=== PATIENT | male | born 1955 | race African-American/Black ===

== ENCOUNTER → 2016-12-13 | Outpatient (CLI) | payer OTHER ==
[~2016-12-13] MED LIST: ALDACTONE25 M1 PO; AMLODIPINE BESY1 TAB PO; BUSPIRONE5 MG PO; CARVEDILOL6.25 MG PO; CLOPIDOGREL75 MG PO; Cyclobenzaprine10 MG MR; FAMOTIDINE20 MG PO; HYDROCODONE BIT1 T11 PO; KEFLEX500 MG PO; LANOXIN0.125 MG PO; LANTUS100 U/ML SC; LISINOPRIL5 MG PO; METFORMIN500 MG PO; METOCLOPRAMIDE10 M1 PO; NOVOLOG100 U/ML SC; OMEPRAZOLE DR20 M1 PO; SIMVASTATIN80 MG PO; SULINDAC200 MG PO; VICODIN 500 MG-1 TAB PO
== END | disposition home or self-care (01) ==
LOC: US 11-20 10:00
DX: R10.12 Left upper quadrant pain (principal); E11.9 Type 2 diabetes mellitus without complications; I10 Essential (primary) hypertension; E78.5 Hyperlipidemia, unspecified; Z90.49 Acquired absence of other specified parts of digestive tract

== ENCOUNTER → 2017-02-09 | Day surgery (SDC) | payer OTHER ==
[~2017-02-09] VITALS: Ht 177.8 cm; Wt 93.0 kg
[~2017-02-09] MED LIST changes: +ASPIRIN81 M1 PO; +GABAPENTIN TAB600 MG PO; +GABAPENTIN800 MG PO; +LEVEMIR100 UNIT/1 SC; +NAPROXEN500 MG PO; +NOVOLOG100 UNIT/1 SC; +REGLAN10 M1 PO; +ZOCOR80 MG PO; +ZYRTEC10 MG PO
--- NOTE | ~2017-02-09 | O ---
[place], [place] OPERATIVE NOTE NAME: OSMAR EDWARDS UNIT #: [id number] ROOM: DOCTOR: CYNDI MARTINS MD BIRTHDATE: [birth year] DOS: GASTROENDOSCOPIC REPORT HISTORY OF PRESENT ILLNESS: This is a 61-year-old patient who presented with left lower quadrant abdominal pain ambiguous in his symptomatology. The patient with past medical history of hepatitis C, hyperlipidemia, diabetes mellitus and hypertension. PAST SURGICAL HISTORY: Pacemaker defibrillator for old history of myocardial infarction and coronary artery disease. FAMILY HISTORY: Brother with colonic carcinoma. ALLERGIES: PENICILLIN. SOCIAL HISTORY: Smoker, nonalcohol consumer. PROCEDURE: Todays' procedure part of investigation is colonoscopy. PREMEDICATION: Versed and Diprivan. SCOPE: Olympus forward-viewing colonoscope 10L video. REPORT: After putting the patient in the left lateral position and after application of lubricant to the scope, the scope was introduced; thereafter, under direct visualization, I advanced through the length of colon without difficulty. Base of the cecum explored, appendiceal orifice identified and ileocecal valve was defined and photographed. The scope was gradually withdrawn. The patient extubated, tolerated the procedure well. IMPRESSION: Normal colonoscopic examination. No explanation for his abdominal pain. He has had a CT scan in 2014, which has been nearly normal. He had sonographic study of his gallbladder and abdomen is status post cholecystectomy and otherwise, no mass was identified. PLAN AND DISCUSSION: We are going to continue with supportive management. High fiber diet was recommended. The patient with hepatitis C, further followup in this regard as needed. Thank you very much indeed for your kind referral. Sincerely yours, [place], [place] OPERATIVE NOTE NAME: OSMAR EDWARDS UNIT #: [id number] ROOM: DOCTOR: CYNDI MRATINS MD BIRTHDATE: [birth year] CYNDI MARTINS MD CM:OPRECORD:OPERATIVE NOTE [id number] CYNDI MARTINS MD 02/09/17 1217 interface
[2017-02-09 08:43] VITALS: BP 171/104
[2017-02-09 09:19] VITALS: BP 141/67
[2017-02-09 09:52] VITALS: BP 141/67
== END | disposition home or self-care (01) ==
LOC: SDC 02-03 10:15
DX: R10.32 Left lower quadrant pain (principal); I10 Essential (primary) hypertension; E11.9 Type 2 diabetes mellitus without complications; E78.00 Pure hypercholesterolemia, unspecified; I25.2 Old myocardial infarction; B19.20 Unspecified viral hepatitis C without hepatic coma; I25.10 Atherosclerotic heart disease of native coronary artery without angina pectoris; K21.9 Gastro-esophageal reflux disease without esophagitis; M19.90 Unspecified osteoarthritis, unspecified site; Z95.810 Presence of automatic (implantable) cardiac defibrillator; Z80.0 Family history of malignant neoplasm of digestive organs; Z88.0 Allergy status to penicillin; Z79.4 Long term (current) use of insulin; Z95.5 Presence of coronary angioplasty implant and graft; Z98.890 Other specified postprocedural states

== ENCOUNTER → 2017-05-10 | Day surgery (SDC) | payer OTHER ==
[2017-05-04 09:15] VITALS: BP 118/72
[2017-05-10] VITALS (7 sets, daily range): BP systolic 118–155; BP diastolic 55–94
[~2017-05-10] VITALS: Ht 180.3 cm; Wt 98.0 kg
[~2017-05-10] MED LIST changes: +CLINDAMYCIN150 MG PO; +NORCO 5-325 TA1 EACH PO
--- NOTE | ~2017-05-10 | O ---
[place], [place] OPERATIVE NOTE [id number] UNIT #: [id number] ROOM: DOCTOR: ZEE STERLING DMD BIRTHDATE: [birth year] DOS: PREOPERATIVE DIAGNOSES: Caries, periodontal disease and anxiety. POSTOPERATIVE DIAGNOSES: Caries, periodontal disease and anxiety. ANESTHESIA: General anesthesia with nasotracheal intubation. FLUIDS: Minimal. ESTIMATED BLOOD LOSS: 100 mL. COMPLICATIONS: None. CONDITION: To PACU, stable. DESCRIPTION OF PROCEDURE: The patient was brought to the OR and placed in supine position. IV and EKG lines were placed. Nasotracheal intubation and general anesthesia was administered. The patient was prepped and draped for oral procedures. Risks and benefits were explained to the patient prior to surgery. Clinical exam and x-rays taken determined nonrestorable maxillary and mandibular dentition due to extreme bone loss and infection. PROCEDURES PERFORMED: Complete extraction of teeth #1 3, 6, 7, 10, 11, 12, 13, 14, 15, 16, 18, 19, 20, 21, 22, 23, 24, 25, 26, 27, 28, 29, 31 and 32. During extraction of teeth #14 and 15, fractured off all root fragments were retrieved. Full thickness flaps in all 4 quadrants with moderate bone removal. Sutured with 4-0 Vicryl. Lavaged x 2. Alveoplasty in all 4 quadrants. Sutured with 4-0 Vicryl. Lavaged x 2. Throat pack removed. The patient left the OR in good condition and went to PACU. ZEE STERLING DMD CM:OPRECORD:OPERATIVE NOTE 1509 10 ZEE STERLING DMD 05/11/17 181 interface
== END | disposition home or self-care (01) ==
LOC: SDC 05-04 08:45
DX: K02.9 Dental caries, unspecified (principal); K05.6 Periodontal disease, unspecified; F41.9 Anxiety disorder, unspecified; E11.9 Type 2 diabetes mellitus without complications; I10 Essential (primary) hypertension; K21.9 Gastro-esophageal reflux disease without esophagitis; M19.90 Unspecified osteoarthritis, unspecified site; I25.2 Old myocardial infarction; I25.10 Atherosclerotic heart disease of native coronary artery without angina pectoris; Z95.5 Presence of coronary angioplasty implant and graft; Z95.0 Presence of cardiac pacemaker; Z80.9 Family history of malignant neoplasm, unspecified; G89.29 Other chronic pain; M54.5 Low back pain; Z88.0 Allergy status to penicillin; F17.210 Nicotine dependence, cigarettes, uncomplicated

== ENCOUNTER → 2017-08-18 | Outpatient (CLI) | payer OTHER ==
--- NOTE | ~2017-08-18 | ST ---
[place], [place] EXERCISE STRESS TEST REPORT NAME[facility]ARDS [id number] UNIT #: [id number] ROOM: DOCTOR: DIANN VELA [facility] BIRTHDATE: [birth year] DOS: 08/18/2017 The patient received Lexiscan 0.4 mg. Heart rate is 75. No ischemic changes noted. Isotope was injected. Myocardial perfusion scan to follow. No complication noted. LARON TIDWELL MD CM:STRESS:EXERCISE STRESS TEST REPORT [id number] LARON TIDWELL MD [facility]
== END | disposition home or self-care (01) ==
LOC: CARD 01:29
DX: I25.119 Atherosclerotic heart disease of native coronary artery with unspecified angina pectoris (principal); R53.81 Other malaise

== ENCOUNTER → 2017-11-17 | Outpatient (CLI) | payer OTHER ==
[2017-11-17 09:42] LABS: BILIRUBIN NEGATIVE (NEGATIVE); BLOOD NEGATIVE (NEGATIVE); CLARITY CLEAR (CLEAR); COLOR YELLOW (YELLOW); GLUCOSE NEGATIVE (NEGATIVE); KETONE NEGATIVE (NEGATIVE); LEUKO ESTERASE NEGATIVE (NEGATIVE); NITRITE NEGATIVE (NEGATIVE)
[2017-11-17 09:50] LABS: BASO # 0.1 10*3/uL (0.0-0.1); EOS # 0.3 10*3/uL (0.0-0.4); EOS % 4.1 % (1.0-4.0); HEMATOCRIT 41.5 % (42.0-52.0); HEMOGLOBIN 13.8 g/dl (14.0-18.0); LYMPH # 3.4 10*3/uL (1.3-4.4); LYMPH % 47.1 % (27.0-41.0); MEAN CELL VOLUME 94.1 fl (80.0-94.0); MEAN CORPUSCULAR HGB 31.3 pg (27.0-31.0); MEAN CORPUSCULAR HGB CONC 33.3 g/dl (33.0-37.0); MEAN PLATELET VOLUME 11.3 fl (9.6-12.3); MONO # 0.7 10*3/uL (0.1-1.0); NEUT # 2.7 10*3/uL (2.3-7.9); NEUT % 37.5 % (47.0-73.0); PLATELET COUNT AUTOMATED 131 10*3/uL (130-400); RED BLOOD COUNT 4.41 10*6/uL (4.50-5.90); RED CELL DISTRI WIDTH 13.8 % (0-14.5); WHITE BLOOD COUNT 7.1 10*3/uL (4.8-10.8)
[2017-11-17 10:19] LABS: ALKALINE PHOSPHATASE 73 U/L (45-117); BUN 11 mg/dl (7-24); CHLORIDE 108 mmol/L (98-107); CHOLESTEROL 96 mg/dL (<200); CREATININE 1.12 mg/dL (0.70-1.30); HDL CHOLESTEROL 30 mg/dl (40-60); LDL CHOLESTEROL 45 mg/dL (9-159); POTASSIUM 4.1 mmol/L (3.5-5.1); SGOT/AST 30 IU/L (3-35); SGPT/ALT 40 U/L (12-78); SODIUM 140 mmol/L (136-145); TOTAL PROTEIN 7.5 gm/dL (6.4-8.2); TRIGLYCERIDES 104 mg/dl (<150); VLDL CHOLESTEROL 21 mg/dL (6-40)
[2017-11-17 10:52] LABS: EPITHELIAL CELLS 0-2; MUCOUS 2+
== END | disposition home or self-care (01) ==
LOC: LAB 09:05
PROVIDERS: Internal Medicine
DX: I10 Essential (primary) hypertension (principal); E11.9 Type 2 diabetes mellitus without complications

== ENCOUNTER → 2019-03-05 | Outpatient (CLI) | payer OTHER ==
[~2019-03-05] MED LIST changes: +DOXYCYCLINE100 M3 PO
== END | disposition home or self-care (01) ==
LOC: LAB 11:25
DX: E11.9 Type 2 diabetes mellitus without complications (principal); E55.9 Vitamin D deficiency, unspecified

== ENCOUNTER 2019-04-20 12:58 | Emergency (ER) | payer OTHER ==
[~2019-04-20] VITALS: Ht 177.8 cm; Wt 94.8 kg
[~2019-04-20 12:58] MED LIST changes: -DOXYCYCLINE100 M3 PO
[2019-04-20 15:21] LABS: BASO # 0.1 10*3/uL (0.0-0.1); BASO % 1.1 % (0.0-1.0); EOS # 0.2 10*3/uL (0.0-0.4); EOS % 3.3 % (1.0-4.0); HEMATOCRIT 42.7 % (42.0-52.0); HEMOGLOBIN 14.4 g/dl (14.0-18.0); LYMPH # 2.7 10*3/uL (1.3-4.4); LYMPH % 41.4 % (27.0-41.0); MEAN CELL VOLUME 93.2 fl (80.0-94.0); MEAN CORPUSCULAR HGB 31.4 pg (27.0-31.0); MEAN CORPUSCULAR HGB CONC 33.7 g/dl (33.0-37.0); MEAN PLATELET VOLUME 10.7 fl (9.6-12.3); MONO # 0.8 10*3/uL (0.1-1.0); MONO % 12.4 % (3.0-9.0); NEUT # 2.7 10*3/uL (2.3-7.9); NEUT % 41.8 % (47.0-73.0); PLATELET COUNT AUTOMATED 147 10*3/uL (130-400); RED BLOOD COUNT 4.58 10*6/uL (4.50-5.90); WHITE BLOOD COUNT 6.5 10*3/uL (4.8-10.8)
[2019-04-20 15:35] LABS: ACT PARTIAL THROMBO TIME 25.7 SECONDS (20.0-32.1); INTERNATIONAL NORM RATIO 0.9 (2.0-3.5)
[2019-04-20 15:36] LABS: ALBUMIN 3.4 gm/dl (3.1-4.5); ALKALINE PHOSPHATASE 73 U/L (45-117); BUN 13 mg/dl (7-24); CHLORIDE 108 mmol/L (98-107); CREATININE 1.17 mg/dL (0.70-1.30); LIPASE 247 U/L (73-393); POTASSIUM 3.9 mmol/L (3.5-5.1); SGOT/AST 49 IU/L (3-35); SGPT/ALT 65 U/L (12-78); SODIUM 139 mmol/L (136-145); TOTAL PROTEIN 7.5 gm/dL (6.4-8.2); TROPONIN I 0.027 ng/ml (<0.045)
[2019-04-20] MEDS ORDERED: DOXYCYCLINE100 M3 PO (20:18)
== END 2019-04-20 20:38 | disposition home or self-care (01) ==
LOC: ED 12:58
PROVIDERS: Physician Assistant
DX: R91.8 Other nonspecific abnormal finding of lung field (principal); M79.604 Pain in right leg; M79.605 Pain in left leg; E11.9 Type 2 diabetes mellitus without complications; I10 Essential (primary) hypertension; K21.9 Gastro-esophageal reflux disease without esophagitis; I25.2 Old myocardial infarction; G89.29 Other chronic pain; I25.10 Atherosclerotic heart disease of native coronary artery without angina pectoris; F17.200 Nicotine dependence, unspecified, uncomplicated; Z95.0 Presence of cardiac pacemaker; Z88.0 Allergy status to penicillin; Z79.899 Other long term (current) drug therapy; Z79.4 Long term (current) use of insulin

== ENCOUNTER → 2019-04-27 | Outpatient (CLI) | payer OTHER ==
[~2019-04-27] MED LIST changes: +DOXYCYCLINE100 M3 PO
[2019-04-30 14:10] LABS: ANGIOTENSIN-CONVERTING ENZYME 51 U/L (14-82)
[2019-05-01 17:08] LABS: ASPERGILLUS FLAVUS Negative (Neg:<1:1); ASPERGILLUS FUMIGATUS Negative (Neg:<1:1); ASPERGILLUS NIGER Negative (Neg:<1:1)
== END | disposition home or self-care (01) ==
LOC: LAB 08:30
PROVIDERS: Internal Medicine Pulmonary Disease
DX: C34.32 Malignant neoplasm of lower lobe, left bronchus or lung (principal)

== ENCOUNTER → 2019-04-28 | Outpatient (CLI) | payer OTHER ==
[2019-04-29 13:08] LABS: ACID FAST SPEC PROCESSING Concentration (.)
== END | disposition home or self-care (01) ==
LOC: LAB 08:02
PROVIDERS: Internal Medicine Pulmonary Disease
DX: C34.32 Malignant neoplasm of lower lobe, left bronchus or lung (principal)

== ENCOUNTER → 2019-04-29 | Outpatient (CLI) | payer OTHER ==
[2019-05-01 16:06] LABS: ACID FAST SPEC PROCESSING Concentration (.)
== END | disposition home or self-care (01) ==
LOC: LAB 08:49
PROVIDERS: Internal Medicine Pulmonary Disease
DX: C34.32 Malignant neoplasm of lower lobe, left bronchus or lung (principal)

== ENCOUNTER → 2019-04-30 | Outpatient (CLI) | payer OTHER ==
[2019-05-01 16:06] LABS: ACID FAST SPEC PROCESSING Concentration (.)
== END | disposition home or self-care (01) ==
LOC: LAB 08:48
PROVIDERS: Internal Medicine Pulmonary Disease
DX: C34.32 Malignant neoplasm of lower lobe, left bronchus or lung (principal)

== ENCOUNTER → 2019-05-16 | Outpatient (CLI) | payer OTHER | END | disposition home or self-care (01) | LOC: CP 08:20 | DX: C34.32 Malignant neoplasm of lower lobe, left bronchus or lung (principal) ==

== ENCOUNTER 2019-11-22 17:43 | Inpatient (IN) | payer OTHER ==
[~2019-11-22] VITALS: Ht 175.3 cm; Wt 84.6 kg
[2019-11-22 18:07] VITALS: BP 97/47
[2019-11-22 18:59] LABS: BASO % 0.5 % (0.0-1.0); EOS % 0.4 % (1.0-4.0); HEMATOCRIT 42.3 % (42.0-52.0); LYMPH # 1.4 10*3/uL (1.3-4.4); LYMPH % 18.1 % (27.0-41.0); MEAN CELL VOLUME 94.2 fl (80.0-94.0); MEAN CORPUSCULAR HGB 30.5 pg (27.0-31.0); MEAN CORPUSCULAR HGB CONC 32.4 g/dl (33.0-37.0); MEAN PLATELET VOLUME 10.5 fl (9.6-12.3); MONO # 1.1 10*3/uL (0.1-1.0); MONO % 14.2 % (3.0-9.0); NEUT % 66.5 % (47.0-73.0); PLATELET COUNT AUTOMATED 141 10*3/uL (130-400); RED BLOOD COUNT 4.49 10*6/uL (4.50-5.90); RED CELL DISTRI WIDTH 15.9 % (0-14.5); WHITE BLOOD COUNT 7.6 10*3/uL (4.8-10.8)
[2019-11-22 19:08] LABS: ACT PARTIAL THROMBO TIME 27.9 SECONDS (20.0-32.1); INTERNATIONAL NORM RATIO 1.1 (2.0-3.5)
[2019-11-22 19:13] LABS: ALBUMIN 3.3 gm/dl (3.1-4.5); ALKALINE PHOSPHATASE 67 U/L (45-117); BUN 12 mg/dl (7-24); CHLORIDE 103 mmol/L (98-107); LIPASE 101 U/L (73-393); POTASSIUM 4.1 mmol/L (3.5-5.1); SGOT/AST 65 IU/L (3-35); SGPT/ALT 70 U/L (12-78); SODIUM 132 mmol/L (136-145); TOTAL PROTEIN 8.4 gm/dL (6.4-8.2)
[2019-11-22 19:15] LABS: TROPONIN I < 0.015 ng/ml (<0.045)
[2019-11-22 19:51] LABS: BILIRUBIN NEGATIVE (NEGATIVE); BLOOD NEGATIVE (NEGATIVE); CLARITY CLEAR (CLEAR); COLOR YELLOW (YELLOW); GLUCOSE NEGATIVE (NEGATIVE); KETONE NEGATIVE (NEGATIVE); LEUKO ESTERASE NEGATIVE (NEGATIVE); NITRITE NEGATIVE (NEGATIVE); SPECIFIC GRAVITY 1.015 (1.005-1.030)
[2019-11-22 19:52] VITALS: BP 101/69
--- NOTE | 2019-11-22 19:52 | NUR ---
PT C/O OF DIFFICULTY BREATHING.O2 SAT 96% RA.PT PLACED ON 2L O2 VIA NC FOR COMFORT.
[2019-11-22 19:54] LABS: BACTERIA TRACE
[2019-11-22 20:55] VITALS: BP 115/75
--- NOTE | 2019-11-22 21:18 | NUR ---
PT UPDATED ON CURRENT PLAN OF CARE.THIS RN SPOKE WITH PT CAREGIVER AND PROVIDED UPDATE ON PLAN OF CARE PER PT VERBAL CONSENT.PT MOVED TO ER7 AT THIS TIME.
--- NOTE | 2019-11-22 21:39 | NUR ---
PT PROVIDED BOXED LUNCH AND DRINK OF GINGERALE.
--- NOTE | 2019-11-22 23:04 | NUR ---
PT DENIES ANY WOUNDS AT THIS TIME.
--- NOTE | 2019-11-22 23:07 | NUR ---
COVID SWAB COLLECTED,LABELED AND WALKED TO LAB.
[2019-11-22 23:38] VITALS: BP 117/74
--- NOTE | 2019-11-22 23:38 | NUR ---
INFUSION OF CEFEPIME COMPLETED.INFUSION OF LEVAQUIN INITIATED PER EMAR.
--- NOTE | 2019-11-22 23:50 | NUR ---
PT DENIES ANY NEEDS AT THIS TIME.URINAL PROVIDED.
--- NOTE | 2019-11-23 01:07 | NUR ---
BED ASSIGNMENT OBTAINED FOR PT.FLOOR RN TO CALL WHEN READY FOR PT.
--- NOTE | 2019-11-23 01:17 | NUR ---
INFUSION OF LEVAQUIN COMPLETED.INFUSION NS @ 100ML/HR INITIATED.
[2019-11-23 01:18] VITALS: BP 120/78
[2019-11-23 02:05] VITALS: BP 119/80
--- NOTE | 2019-11-23 02:05 | NUR ---
A 63, admitted to 4E, under the services of TRACY Varma DO with a diagnosis ofDYSPNEA,PNEUMONIA . Chief complaint is small cell lung cancer, radiation last tuesday, CA is in lungs, spine, liver, vones. c/o moist cough,,back pain.. Patient arrived via stretcher from ER. Monitor applied. Initial assessment completed. Vital signs taken and recorded. TRACY VARMA DO notified of admission to the 4E unit. Orders received. See assessment for past medical history, medications and allergies. Patient and/or family oriented to unit. [facility] visitation policy reviewed. Clothing/patient valuable form completed. CINTHIA PÉREZ J
--- NOTE | 2019-11-23 06:48 | NUR ---
ELEANOR CONSULT COMPLETE.
[2019-11-23 07:02] LABS: BASO % 0.5 % (0.0-1.0); EOS % 0.5 % (1.0-4.0); HEMATOCRIT 37.7 % (42.0-52.0); MEAN CORPUSCULAR HGB 30.7 pg (27.0-31.0); MEAN CORPUSCULAR HGB CONC 32.4 g/dl (33.0-37.0); MEAN PLATELET VOLUME 10.6 fl (9.6-12.3); MONO # 1.1 10*3/uL (0.1-1.0); NEUT # 4.2 10*3/uL (2.3-7.9); NEUT % 65.8 % (47.0-73.0); PLATELET COUNT AUTOMATED 133 10*3/uL (130-400); RED BLOOD COUNT 3.97 10*6/uL (4.50-5.90); RED CELL DISTRI WIDTH 15.9 % (0-14.5); WHITE BLOOD COUNT 6.3 10*3/uL (4.8-10.8)
[2019-11-23 07:34] LABS: ALBUMIN 2.8 gm/dl (3.1-4.5); BUN 12 mg/dl (7-24); CHLORIDE 104 mmol/L (98-107); CHOLESTEROL 84 mg/dL (<200); CREATININE 0.83 mg/dL (0.70-1.30); FREE T4 1.49 ng/dl (0.76-1.46); HDL CHOLESTEROL 32 mg/dl (40-60); LDL CHOLESTEROL 38 mg/dL (9-159); POTASSIUM 3.9 mmol/L (3.5-5.1); SGOT/AST 60 IU/L (3-35); SODIUM 134 mmol/L (136-145); TOTAL PROTEIN 7.3 gm/dL (6.4-8.2); TRIGLYCERIDES 70 mg/dl (<150); VLDL CHOLESTEROL 14 mg/dL (6-40)
[2019-11-23 07:39] LABS: ALKALINE PHOSPHATASE 57 U/L (45-117); SGPT/ALT 60 U/L (12-78); THYROID STIM HORMONE (HS) 0.385 uIU/ml (0.358-4.75)
[2019-11-23 08:00] VITALS: BP 121/73
--- NOTE | 2019-11-23 08:00 | NUR ---
PT SITTING UP IN BED. VOICES NO CONCERNS AT THIS TIME. RESPS EASY AND NON LABORED. NO S/S OF DISTRESS. VSS. WHITE BOARD UPDATED. OXYGEN INTACT. A/O X3. RHONCHI/WHEEZES NOTED. PT STATES HE IS NO LONGER SOB. HARSH NON PRODUCTIVE COUGH NOTED. WILL CONTINUE TO MONITOR. CALL LIGHT WITHIN REACH.
[2019-11-23 08:51] LABS: VITAMIN D, 25-HYDROXY 47.5 ng/mL (30-100)
--- NOTE | 2019-11-23 09:00 | NUR ---
Architectural Intern in to talk to patient. Patient states lives at home with . There are no steps in the home. Physician: [facility]acy: [facility] Home health services: none Patient's level of ADLs: INDEPENDENT Patient has working utilities: all working DME: none Follow-up physician's appointment after d/c: will be made by hospitalist nurse director upon discharge Does patient want to access PORTAL?: no Discharge plan discussed with patient, he lives at home, is currently receiving chemotherapy and radiation, patient wants to return home when discharged and continue current treatment, case management will follow. ALICIA GONZÁLES
[2019-11-23 12:00] VITALS: BP 116/69
[2019-11-23 16:00] VITALS: BP 102/62
[2019-11-23] MEDS ORDERED: CYCLOBENZAPRINE10 MG PO (18:33)
[2019-11-23] MEDS ORDERED: OXYCODONE HCL10 M1 PO (18:34)
[2019-11-23] MEDS ORDERED: Amaryl2 MG PO (18:34)
[2019-11-23] MEDS ORDERED: LIPITOR40 MG PO (18:35)
[2019-11-23] MEDS ORDERED: VITAMIN D250 MC1 PO (18:35)
[2019-11-23] MEDS ORDERED: LASIX20 MG PO (18:36)
[2019-11-23] MEDS ORDERED: HEARTBURN RELIE20 MG PO (18:36)
[2019-11-23] MEDS ORDERED: LANTUS SOL100 UNIT/1 SC (18:37)
--- NOTE | 2019-11-23 19:20 | NUR ---
REPORT RECEIVED. PT LYING IN BED WATCHING TV AT THIS TIME. O2 INTACT. VOICES NO COMPLAINTS, CALL LIGHT IN REACH
[2019-11-23 20:00] VITALS: BP 118/67
--- NOTE | 2019-11-23 21:00 | NUR ---
PT WATCHING TV. NO COMPLAINTS. CALL LIGHT IN REACH
[2019-11-24] VITALS: BP 100/60
--- NOTE | 2019-11-24 | NUR ---
IN TO SEE PT. PT LYING IN BED WITH EYES CLOSED. PT VOICES NO COMPLAINTS. CALL LIGHT IN REACH
[2019-11-24 06:43] LABS: BASO % 0.7 % (0.0-1.0); EOS % 0.7 % (1.0-4.0); HEMATOCRIT 38.5 % (42.0-52.0); LYMPH # 1.1 10*3/uL (1.3-4.4); LYMPH % 18.4 % (27.0-41.0); MEAN CELL VOLUME 93.7 fl (80.0-94.0); MEAN CORPUSCULAR HGB 30.2 pg (27.0-31.0); MEAN CORPUSCULAR HGB CONC 32.2 g/dl (33.0-37.0); MEAN PLATELET VOLUME 9.7 fl (9.6-12.3); MONO # 0.8 10*3/uL (0.1-1.0); MONO % 14.3 % (3.0-9.0); NEUT # 3.9 10*3/uL (2.3-7.9); NEUT % 65.7 % (47.0-73.0); PLATELET COUNT AUTOMATED 130 10*3/uL (130-400); RED BLOOD COUNT 4.11 10*6/uL (4.50-5.90); RED CELL DISTRI WIDTH 15.9 % (0-14.5); WHITE BLOOD COUNT 5.9 10*3/uL (4.8-10.8)
[2019-11-24 07:21] LABS: ALBUMIN 2.8 gm/dl (3.1-4.5); BUN 11 mg/dl (7-24); CHLORIDE 106 mmol/L (98-107); CREATININE 0.89 mg/dL (0.70-1.30); SGOT/AST 68 IU/L (3-35); SGPT/ALT 70 U/L (12-78); SODIUM 134 mmol/L (136-145)
[2019-11-24 07:23] LABS: ALKALINE PHOSPHATASE 64 U/L (45-117); TOTAL PROTEIN 7.2 gm/dL (6.4-8.2)
[2019-11-24 08:00] VITALS: BP 91/59
--- NOTE | 2019-11-24 10:00 | NUR ---
PT AWAKE, ALERT, AND ORIENTED. LUNGS DIMINISHED T/O. ROOM AIR POX 95%. STILL COUGHING UP SMALL AMOUNT OF SPUTUM. NO EDEMA NOTED. AMBULATORY. DENIES ANY NEEDS AT THIS TIME.
[2019-11-24 12:00] VITALS: BP 108/69; BP 108/71
[2019-11-24 16:00] VITALS: BP 118/69
--- NOTE | 2019-11-24 19:30 | NUR ---
REPORT RECEIVED FROM WILFRID LIN. PT LYING IN BED AT THIS TIME. CALL LIGHT IN REACH
[2019-11-24 20:00] VITALS: BP 126/73
--- NOTE | 2019-11-24 21:00 | NUR ---
PT WATCHING TV AT THIS TIME. CALL LIGHT IN REACH
--- NOTE | 2019-11-24 23:30 | NUR ---
PT SLEEPING AT THIS TIME
[2019-11-25] VITALS: BP 101/60
--- NOTE | 2019-11-25 03:00 | NUR ---
PT IS SLEEPING AT THIS TIME. NO SIGNS/SYMPTOMS OF DISTRESS NOTED. CALL LIGHT IN REACH OF PATIENT
[2019-11-25 06:01] LABS: BUN 12 mg/dl (7-24); CHLORIDE 109 mmol/L (98-107); CREATININE 0.83 mg/dL (0.70-1.30); SODIUM 138 mmol/L (136-145)
[2019-11-25 06:14] LABS: BASO % 0.7 % (0.0-1.0); EOS # 0.1 10*3/uL (0.0-0.4); EOS % 0.9 % (1.0-4.0); HEMATOCRIT 37.9 % (42.0-52.0); LYMPH # 1.3 10*3/uL (1.3-4.4); LYMPH % 23.2 % (27.0-41.0); MEAN CELL VOLUME 93.3 fl (80.0-94.0); MEAN CORPUSCULAR HGB CONC 32.2 g/dl (33.0-37.0); MEAN PLATELET VOLUME 10.5 fl (9.6-12.3); MONO # 0.8 10*3/uL (0.1-1.0); MONO % 14.4 % (3.0-9.0); NEUT # 3.5 10*3/uL (2.3-7.9); NEUT % 60.6 % (47.0-73.0); PLATELET COUNT AUTOMATED 137 10*3/uL (130-400); RED BLOOD COUNT 4.06 10*6/uL (4.50-5.90); RED CELL DISTRI WIDTH 15.8 % (0-14.5); WHITE BLOOD COUNT 5.7 10*3/uL (4.8-10.8)
[2019-11-25 08:00] VITALS: BP 129/77
[2019-11-25 11:44] VITALS: BP 96/59
[2019-11-25] MEDS ORDERED: LEVAQUIN750 M1 PO (16:19)
--- NOTE | 2019-11-25 16:40 | NUR ---
Discharge instructions reviewed with patient/family. Patient receptive and verbalizes understanding. Follow-up care arranged. Written instructions given to patient/family. HEPLOCK DISCONTINUED. PATIENT TAKEN OFF FLOOR VIA WHEELCHAIR. PT AWARE OF SCRIPT AT THE PHARMACY. WILFRID PRUETT
== END 2019-11-25 16:40 | disposition home or self-care (01) | DRG 720 ==
LOC: ED 17:43 → 4E 21:59 → EDHOLD 21:59 → 4E 11-23 00:13
PROVIDERS: Internal Medicine; Nurse Practitioner Family; ADMIT Student in an Organized Health Care Education/Training Program
DX: A41.9 Sepsis, unspecified organism (principal); J18.9 Pneumonia, unspecified organism; C78.7 Secondary malignant neoplasm of liver and intrahepatic bile duct; C34.90 Malignant neoplasm of unspecified part of unspecified bronchus or lung; C79.51 Secondary malignant neoplasm of bone; E11.9 Type 2 diabetes mellitus without complications; I10 Essential (primary) hypertension; E87.1 Hypo-osmolality and hyponatremia; E78.5 Hyperlipidemia, unspecified; E44.0 Moderate protein-calorie malnutrition; Z20.828 Contact with and (suspected) exposure to other viral communicable diseases; D53.9 Nutritional anemia, unspecified; F17.210 Nicotine dependence, cigarettes, uncomplicated; Z71.6 Tobacco abuse counseling; Z79.4 Long term (current) use of insulin; Z88.0 Allergy status to penicillin; Z83.3 Family history of diabetes mellitus; Z90.49 Acquired absence of other specified parts of digestive tract; Z80.1 Family history of malignant neoplasm of trachea, bronchus and lung; Z68.27 Body mass index [BMI] 27.0-27.9, adult